=== PATIENT | male | born 1960 | race Caucasian/White ===

== ENCOUNTER 2018-08-09 08:49 | Day surgery (SDC) | payer OTHER ==
[2018-08-05 17:05] VITALS: BMI 31.4
[2018-08-09] VITALS (11 sets, daily range): BP systolic 91–109; BP diastolic 42–58; PULSE 61–84; RESP 13–23; Ht 175.3 cm; Wt 97.1 kg
[~2018-08-09] VITALS: Ht 175.3 cm; Wt 97.1 kg
[~2018-08-09 08:49] MED LIST: ASPI-817 PO; ATOR20TA38 PO; ESCI10TA PO
[2018-08-09] MEDS ORDERED: LACTATED RINGER'S 1,000 ML IV SCH (09:30)
--- NOTE | 2018-08-09 11:33 | PREAC ---
Date/Time of Note Date/Time of Note DATE: 08/09/18 TIME: 11:29 Anesthesia Eval and Record Evaluation Time Pre-Procedure Interview DATE: 08/09/18 TIME: 11:29 Age 57 Sex male NPO: 8 hrs Preoperative diagnosis hearing loss Planned procedure left ear tympanoplasty Past Medical History Past Medical History: Includes Cardio: HTN (denied by pt), Dyslipidemia Surgery & Anesthesia Issues No known issue Meds Anticoagulation: No Beta Car within 24 hr: No Reason Beta Car not given: Pt. not on B-Car Reported Medications Escitalopram Oxalate* (Lexapro*) 10 Mg Tablet, 10 MG PO DAILY, #30 TAB 06/01/18 Atorvastatin Calcium* (Atorvastatin Calcium*) 20 Mg Tablet, 20 MG PO QHS, #30 TAB 06/01/18 Discontinued Reported Medications Aspirin* (Aspirin* EC) 81 Mg Tablet.dr, 81 MG PO DAILY, TAB 06/01/18 Current Medications Lactated Ringer's 1,000 ml @ 30 mls/hr Q24H IV Last administered on 08/09/18at 09:34; Admin Dose 30 MLS/HR; Start 08/09/18 at 09:30 Meds reviewed: Yes Allergies Coded Allergies: No Known Drug Allergies (Verified Allergy, Unknown, 08/09/18) Allergies Reviewed: Yes Labs/Studies Labs Reviewed: Reviewed by anesthesiologist test: N/A Studies: ECG (sr), CXR (nl) Pre-procedure Exam Last vitals Vital Signs Date Temp Pulse Resp B/P (MAP) Pulse Ox O2 O2 Flow FiO2 Time Delivery Rate 08/09/18 96.9 61 16 109/50 98 Room Air 09:20 (69) Airway: Adequate mouth opening Mallampati: Mallampati I Teeth: Abnormal (denture) Lung: Normal Heart: Normal ASA Physical Status ASA physical status: 2 Emergency: None Planned Anesthetic General/MAC: LMA Planned Pain Management Parenteral pain med Pre-operative Attestations Prior to commencing anesthesia and surgery, the patient was re-evaluated, there was verification of: *The patient's identity *The results of appropriate recent lab work and preoperative vital signs *The above evaluation not changing prior to induction *Anesthetic plan, risk benefits, alternative and complications discussed with patient/family; questions answered; patient/family understands, accepts and wishes to proceed. SABINO PALMER MD Aug 09, 2018 11:33
[2018-08-09] MEDS ORDERED: MIDAZOLAM 1 MG/ML 2 ML INJ ONE (11:43)
[2018-08-09] MEDS ORDERED: METOCLOPRAMIDE 10 MG INJ ONE (11:43)
[2018-08-09] MEDS ORDERED: CEFAZOLIN 1 GM INJ ONE (11:47)
[2018-08-09] MEDS ORDERED: FENTAnyl 50 MCG/ML VIAL ONE (11:47)
[2018-08-09] MEDS ORDERED: ONDANSETRON 4 MG INJ ONE (11:51)
[2018-08-09] MEDS ORDERED: DIPHENHYDRAMINE 50 MG INJ IV PRN (12:00)
[2018-08-09] MEDS ORDERED: ONDANSETRON 4 MG INJ IV PRN (12:00)
[2018-08-09] MEDS ORDERED: OXYCODONE/ACETAMINOPHEN (5/325) TAB PO PRN (12:00)
[2018-08-09] MEDS ORDERED: HYDROmorphONE 1 MG/5 ML IV SYRINGE IV PRN ×2 (12:00)
[2018-08-09] MEDS ORDERED: MEPERIDINE 25 MG INJ IV PRN (12:00)
[2018-08-09] MEDS ORDERED: EPINEPHrine 0.1 MG/ML SYG ONE (12:02)
[2018-08-09] MEDS ORDERED: LIDOCAINE 1%/EPI (1:100,000) (MDV) 20 ML ONE (12:08)
[2018-08-09] MEDS ORDERED: GELATIN SIZE 100 SPONGE ONE (12:22)
[2018-08-09] MEDS ORDERED: NEOMYC/POLYMYX/HC 10 ML OTIC SUSP ONE (12:28)
[2018-08-09] MEDS ORDERED: PROPOFOL 40 ML ONE (12:54)
[2018-08-09] MEDS ORDERED: GELATIN SIZE 100 SPONGE TOP ONE (13:01)
--- NOTE | 2018-08-09 13:13 | PDOCDIS ---
Discharge Instructions DIAGNOSIS Discharge Diagnosis 1. LEFT CHRONIC OTITIS MEDIA. 2. RIGHT EAR HEARING LOSS. 3. RIGHT EAR TM PERFORATION CONDITION [id number] Patient Condition: Lyfzs2e Good HOME CARE INSTRUCTIONS: [id number] Diet Instructions: Vnfnh8d Regular ACTIVITY: Cvdfo9Ms Activity Restrictions: Nzvvd9g Slowly Increase Activity Rest between Activity Avoid heavy lifting (NO NOSE BLOWING SNEEZE OUT OF YOUR MOUTH. KEEP YOUR LEFT EAR DRY.) [id number] Bathing Restrictions: Etsvr6w Tub Bath FOLLOW UP/APPOINTMENTS Follow-up Plan MY OFFICE IN 7 TO 10 DAYS. SCHOOL/WORK RELEASE May return to School/Work on: Aug 16, 2018 May return to School/Work with: No Restrictions KEIRY WALLS M.D. Aug 09, 2018 13:13
--- NOTE | 2018-08-09 13:18 | OPR ---
Date/Time of Note Date/Time of Note DATE: 08/09/18 TIME: 13:15 Operative Report Procedure Date: Aug 09, 2018 Preoperative Diagnosis 1. LEFT CHRONIC OTITIS MEDIA. 2. RIGHT EAR HEARING LOSS. 3. RIGHT EAR TM PERFORATION Postoperative Diagnosis SAME. Operation/Procedure Performed 1. LEFT EAR TYMPANOPLASTY WITH LATERAL PERICHONDRIAL FASIAL TRAGAL GRAFT. Surgeon see signature line Senior Credit Officer NONE Anesthesia Type: general (WITH 4 CC 1% LIDOCAINE WITH EPI 1:100,000 SOLN.) Estimated Blood Loss: 0 - 10 ml's Transfusion none Specimen NONE. Grafts/Implants none Complications none Pt Condition Post Procedure: stable Disposition: PACU Indications TO PROTECT LEFT EAR AND IMPROVE HEARING. Procedure Description SEE DICTATED OPERATIVE REPORT. KEIRY WALLS M.D. Aug 09, 2018 13:18
--- NOTE | 2018-08-09 15:39 | OPR ---
DATE OF OPERATION: 08/09/2018 SURGEON: Bruno Rodrigues MD PREOPERATIVE DIAGNOSES: 1. Left chronic otitis media with perforation. 2. Left ear hearing loss. POSTOPERATIVE DIAGNOSES: 1. Left chronic otitis media with perforation. 2. Left ear hearing loss. OPERATION PERFORMED: Left ear lateral placed perichondrial fascial tragal graft. ESTIMATED BLOOD LOSS: Less than 1 mL. COMPLICATIONS: None. SPECIMENS: No specimens sent to the lab. INDICATIONS: Mr. Jhony Saini is a 57-year-old male who has a history of left ear hearing loss. The patient has been found to have a perforated tympanic membrane, 60% with the ossicles appearing to be intact. The patient is also found to have chronic drainage which was treated with antibiotics. There are no signs of cholesteatomas or tumors present during the procedure. The patient has been sc heduled for a left ear tympanoplasty procedure as indicated. Risks, benefits, and alternatives have been explained thoroughly to the patient include infections, bleeding, failure of procedure, possible worsening of his hearing loss as well as possible scarring in the area. He also understands the ris ks of general and local anesthetic agents and their possible side effects and reactions. He signed c onsent once his questions were answered. ANESTHESIA: General anesthesia with LMA tube placement. The patient also received 4 mL of 1% lidoca ine with epinephrine 1:100,000 solution to the left tragus. The patient was also given IV antibiotic s before the case was begun. FINDINGS DURING PROCEDURE: Left ear tympanic membrane perforation primarily 60% with what appeared t o be intact ossicles. No signs of cholesteatomas or tumors or acute inflammation. DESCRIPTION OF PROCEDURE: The patient was taken to the operating room, placed on the surgical table in supine position, made comfortable by the anesthesiologist. The patient had EKG, saturation monito r and blood pressure cuff applied. At this point, the patient had previous started IV in the preindu ction area which was infusing well. The patient was then given IV sedation and placed under general anesthesia. The airway was then maintained and controlled before an LMA slipped inside the oral cavi ty and put in its proper positioning. The LMA was then inflated. The patient was being ventilated w ith normal vital signs. At this point, the table was unlocked and rotated approximately 45 degrees f rom neutral position to the left. At this point, the ear was prepped with a Betadine scrub and paint reagent as a sterile field was created with an eye drape and towels and a split sheet. At this poin t, another brief time out was then encountered and again all were in agreement. At this point, the p rocedure was begun by injecting the left tragus with a 25-gauge 1-1/2 needle using 1% lidocaine with epinephrine 1:100,000 solution. Approximately 4 mL injected into the tragus. After time was allowed for maximal effect of this medication, a #15 Make My plate-Joel sharp stainless steel blade was then used t o incise the lateral surface of the left tragus. This was done after identification of an X on the l eft ear indicating the appropriate ear for surgical procedure. Incision carried down the subcuticula r tissue just above the perichondrium on the tragus. The tragus was then removed using sharp dissect ion as the perichondrial fascial covering was removed. The graft or fascia was then placed on Gelfoa m and put in a press and allowed to dry. Both sides of the tragus had removal of the perichondrium b efore the cartilage was put back in the donor site. The left tragus or donor site was then sutured w ith 4-0 nylon sutures with good skin closure. At this point, the grafts were allowed to dry as the l ateral surface of the tympanic membrane was removed. The malleus appeared to be intact as well as th e top of the stapes, which showed no signs of erosions. There are no signs of cholesteatomas seen as the de-epithelization of the lateral surface of the tympanic membrane was completed. At this point, a grafting material x2 was placed on the lateral surface of the tympanic membrane to cover the perfo ration. Gelfoam was then used to keep the graft in place using Gelfoam-soaked in Cortisporin otic marquis spension. A cotton ball was placed on the inner aspect of the external auditory canal to keep the Ge lfoam and the graft in place. A larger cotton ball was placed in the conchal region and an eye patch placed over the left ear and taped in position in the procedure. Sponge count and instrument count correct x3. There were no complications during the procedure. The patient was extubated in the oper ating room, taken to recovery room where his facial nerve appears to be intact and expects to be disc harged home unless postoperative complications develop. Dictated By: BRUNO AREVALO/BONNIE Conf#: [id number] DID#: [id number]
--- NOTE | 2018-08-10 07:38 | PAC ---
Date/Time of Note Date/Time of Note DATE: 08/10/18 TIME: 07:38 Post-Anesthesia Notes Post-Anesthesia Note Last documented vital signs Vital Signs Date Temp Pulse Resp B/P (MAP) Pulse Ox O2 O2 Flow FiO2 Time Delivery Rate 08/09/18 97.8 73 16 102/50 98 Room Air 14:20 (67) 08/09/18 5.6 13:23 Activity: WNL Respiratory function: WNL Cardiovascular function: WNL Mental status: Baseline Pain reasonably controlled: Yes Hydration appropriate: Yes Nausea/Vomiting absent: No SABINO PALMER MD Aug 10, 2018 07:38
== END 2018-08-09 16:25 | disposition home or self-care (01) ==
LOC: SDS 08:49
PROVIDERS: ATTEND Otolaryngology Otolaryngology/Facial Plastic Surgery
DX: H66.92 Otitis media, unspecified, left ear (principal); H91.92 Unspecified hearing loss, left ear
CPT/HCPCS: 21235; J0690; J2250; J2405; J2765; J3010; Z7512; Z7610; J0171